=== PATIENT | male | born 1955 | race Caucasian/White ===

== ENCOUNTER 2016-05-20 06:32 | Inpatient (IN) | payer OTHER ==
--- NOTE | 2016-05-20 06:48 | EDPHY ---
H & P Source: EMS Time Seen by Provider: 05/20/16 06:42 HPI/ROS: HPI The patient presents brought in by ambulance after being found down on the bike path in a few inches of snow next to a [place]. It is unclear how long he was down for, however police received a call about an hour prior about someone yelling for help. The patient was noted to be very cold, was nonresponsive. He was given hot packs, had a normal blood glucose, IVs were established, and he was transported to the hospital. On arrival, the patient is not able to give any history due to his mental status. REVIEW OF SYSTEMS Unable to obtain given mental status PMHx: Unable to obtain PHYSICAL General Appearance: Cool to the touch, eyes closed, arouses to painful stimuli Eyes: Pupils are midline, reactive, mild conjunctival injection ENT, Mouth: Mucous membranes moist Respiratory: There are no retractions, lungs are clear to auscultation Cardiovascular: Regular rate and rhythm Gastrointestinal: Abdomen is soft and non-tender, no masses, bowel sounds normal Neurological: A&O, moves all extremities Skin: Warm and dry, no rashes Musculoskeletal: Neck is supple non tender, he is somewhat contracted Extremities: symmetrical, full range of motion (Bianca Birmingham) Constitutional: Initial Vital Signs Temperature (C) 28.1 C L 05/20/16 06:32 Heart Rate 58 L 05/20/16 06:32 Respiratory Rate 20 05/20/16 06:32 Blood Pressure 115/71 05/20/16 06:32 O2 Sat (%) 99 05/20/16 06:32 O2 Delivery Mode Non-Rebreather Mask O2 (L/minute) 10 Allergies/Adverse Reactions: Penicillins Allergy (Verified 05/20/16 09:31) Tetanus Vaccines and Toxoid Allergy (Verified 05/20/16 09:31) Home Medications: Medication Instructions Recorded Unobtainable 05/20/16 Medical Decision Making - Diagnostics EKG Interpretation: EKG: Complete interpretation has been separately recorded in the [facility] archive. Summary impression: Interventricular conduction delay, rate of 657 (Bianca Birmingham) Imaging: Imaging Impressions Chest X-Ray 05/20/16 06:52 Impression: AP recumbent changes. When clinically feasible, PA and lateral upright views in the department are suggested. Head CT 05/20/16 06:52 Impression: 1. Severe atrophy. 2. No hemorrhage 3. Equivocal left midbrain infarction. 4. Suspect dehydration rather than diffuse cerebral venous thrombosis. Results discussed with Dr. Destini Mccoy at 8:09 AM General information for patients regarding this examination can be found at [email or web address]. If you have questions or comments about this report, please contact me at [phone] (hospital) or [phone] (cell). Procedures: CENTRAL LINE WITH US GUIDANCE Procedure: Ultrasound guidance. Using the linear probe covered in a sterile sheath, a short axis of the vein was obtained. The vein was completely compressible and was identified as separate from the adjacent non-compressible arterial structure. Under real- time guidance, the introducer needle was observed up to the vein, and then punctured it. Indication: Severe hypothermia. Risks, benefits, alternatives were not discussed given the patient's altered mental status and emergent condition including but not limited to bleeding, infection, vascular injury, and collapsed lung and consent obtained. A timeout was observed. [Full maximal sterile barrier technique was used including cap, gown, sterile gloves, large sheet, hand washing and chlorhexidine prep]. The area was anesthetized with 1% lidocaine. A social triple lumen catheter was placed in the right femoral vein using standard Seldinger technique. There were no complications. Blood return low pressure, dark blood. Patient tolerated procedure well. The procedure was performed by myself. (Bianca Birmingham) ED Course/Re-evaluation: 745: Care of this patient was transferred to dc by Dr. Birmingham at shift change. The patient's temperature is 28.5C. Given this, he meets requirements for Full Trauma Activation. Trauma surgeon paged. 755: Consultation with Dr. Greenwood, trauma surgeon on-call, who will visit the patient in the ED. 808: Imaging results reported to me by Dr. Hanson, radiologist. 825: Dr. Greenwood at bedside. Will proceed with CT of the c-spine per Dr. Greenwood' s recommendation. CT C-spine negative. Pt's VS remained stable throughout his ED stay. Core temp gradually increased. (Destini Mccoy) Differential Diagnosis: This is an approximately 49-year-old man who is found down next to a [place] on the bike path in a few inches of snow with altered mental status. Presumed to be hypothermic. He is minimally responsive, only to painful stimuli, he is moving all extremities. He does not have any external signs of trauma. He has a heart rate in the 70s with a normal blood pressure. His oxygen saturation is in the high 90s with a non-rebreather mask. Immediately, patient was undressed dried off, placed with the Toñito Hugger. He has 2 IV lines established and he was given warm normal saline. Hauser was placed and bladder temp returned at 27 C. Given this severe hypothermia, decision was made to place central line to administer warm IV fluids with full. I discussed the case with the hospitalist Dr. Monique. We plan to admit the patient to the ICU. CT scan of his head and chest x-ray are currently pending. (Bianca Birmingham) Critical Care Time: CRITICAL CARE Critical care time spent by me, Dr Birmingham, exclusively with this patient was 30 minutes, exclusive of PA time and exclusive of procedures. The organ system at risk was neuro, cardiac and I gave IV fluids, emergently transfer the patient to the ICU to prevent worsening of the patients condition. (Bianca Birmingham) - Data Points Laboratory Results: Laboratory Results 05/20/16 06:30 05/20/16 06:30 05/20/16 05/20/16 05/20/16 06:35 06:30 06:30 WBC 6.45 10^3/uL 10^3/uL (3.80-9.50) RBC 4.61 10^6/uL 10^6/uL (4.40-6.38) Hgb 12.8 g/dL L g/dL (13.7-17.5) POC Hgb 15.0 gm/dL gm/dL (14.5-17.3) Hct 40.7 % % (40.0-51.0) POC Hct 44 % % (42.8-50.6) MCV 88.3 fL fL (81.5-99.8) MCH 27.8 pg L pg (27.9-34.1) MCHC 31.4 g/dL L g/dL (32.4-36.7) RDW 18.9 % H % (11.5-15.2) Plt Count 137 10^3/uL L 10^3/uL (150-400) MPV 10.5 fL fL (8.7-11.7) Neut % (Auto) 23.7 % L % (39.3-74.2) Lymph % (Auto) 68.8 % H % (15.0-45.0) [place] % (Auto) 4.3 % L % (4.5-13.0) Eos % (Auto) 1.7 % % (0.6-7.6) Baso % (Auto) 1.2 % % (0.3-1.7) Nucleat RBC Rel Count 0.0 % % (0.0-0.2) Absolute Neuts (auto) 1.52 10^3/uL L 10^3/uL (1.70-6.50) Absolute Lymphs (auto) 4.44 10^3/uL H 10^3/uL (1.00-3.00) Absolute Monos (auto) 0.28 10^3/uL L 10^3/uL (0.30-0.80) Absolute Eos (auto) 0.11 10^3/uL 10^3/uL (0.03-0.40) Absolute Basos (auto) 0.08 10^3/uL 10^3/uL (0.02-0.10) Absolute Nucleated RBC 0.00 10^3/uL 10^3/uL (0-0.01) Immature Gran % 0.3 % % (0.0-1.1) Immature Gran # 0.02 10^3/uL 10^3/uL (0.00-0.10) POC Sodium 150 mEq/L H mEq/L (134-144) Sodium 153 mEq/L H mEq/L (134-144) POC Potassium 4.0 mEq/L mEq/L (3.3-5.0) Potassium 4.3 mEq/L mEq/L (3.5-5.2) POC Chloride 109 mEq/L H mEq/L (96-108) Chloride 110 mEq/L mEq/L (97-110) Carbon Dioxide 22 mEq/l mEq/l (22-31) Anion Gap 21 mEq/L H mEq/L (8-16) POC BUN 15 mg/dL mg/dL (7-23) BUN 14 mg/dL mg/dL (7-23) Creatinine 1.0 mg/dL mg/dL (0.7-1.3) POC Creatinine 1.2 mg/dL mg/dL (0.8-1.5) Estimated GFR > 60 Glucose 114 mg/dL H mg/dL (70-100) POC Glucose 115 mg/dL H mg/dL (70-100) Calcium 8.7 mg/dL mg/dL (8.5-10.4) Total Bilirubin 1.0 mg/dL mg/dL (0.1-1.4) AST 159 IU/L H IU/L (17-59) ALT 77 IU/L H IU/L (21-72) Alkaline Phosphatase 113 IU/L IU/L (38-126) Total Protein 8.5 g/dL H g/dL (6.3-8.2) Albumin 4.3 g/dL g/dL (3.5-5.0) Ethyl Alcohol 381 mg/dL H mg/dL (0-10) Medications Given: Discontinued Medications Sodium Chloride (Ns) 2,000 mls @ 0 mls/hr IV EDNOW ONE PRN Reason: Wide Open Stop: 05/20/16 07:01 Last Admin: 05/20/16 08:18 Dose: 2,000 mls Thiamine HCl 500 mg/ Sodium (Chloride) 105 mls @ 210 mls/hr IM ONCE ONE Stop: 05/20/16 10:40 Last Admin: 05/20/16 13:39 Dose: Not Given Lorazepam (Ativan Injection) 2 mg IVP ONCE ONE Stop: 05/20/16 10:12 Last Admin: 05/20/16 13:40 Dose: Not Given Lorazepam (Ativan) 2 mg PO ONCE ONE Stop: 05/20/16 10:12 Last Admin: 05/20/16 13:43 Dose: 2 mg Point of Care Test Results: 05/20/16 06:35 POC Sodium 150 H POC Potassium 4.0 POC Chloride 109 H POC BUN 15 POC Creatinine 1.2 POC Glucose 115 H Departure - Departure Disposition: [facility] [place] Inpatient Acute Clinical Impression: Hypothermia Qualifiers: Encounter type: initial encounter Qualified Code(s): T68.XXXA - Hypothermia, initial encounter Altered mental status Qualifiers: Altered mental status type: somnolence Qualified Code(s): R40.0 - Somnolence Condition: Critical
[2016-05-20 06:51] LABS: % IMMATURE GRANULYOCYTES 0.3 % (0.0-1.1); ABSOLUTE IMMATURE GRANULOCYTES 0.02 10^3/uL (0.00-0.10); ADD DIFF? NO; ADD MORPH? NO; ADD SCAN? NO; ATYPICAL LYMPHOCYTE FLAG 0 (0-99); FRAGMENT RBC FLAG 0 (0-99); HEMATOCRIT 40.7 % (40.0-51.0); HEMOGLOBIN 12.8 g/dL (13.7-17.5); LEFT SHIFT FLG 0 (0-99); LIPEMIA HEMOLYSIS FLAG 80 (0-99); MEAN CELL HEMOGLOBIN 27.8 pg (27.9-34.1); MEAN CELL HEMOGLOBIN CONCENTR. 31.4 g/dL (32.4-36.7); MEAN CELL VOLUME 88.3 fL (81.5-99.8); MEAN PLATELET VOLUME 10.5 fL (8.7-11.7); PLATELET CLUMPS FLAG 10 (0-99); PLATELET COUNT 137 10^3/uL (150-400); RED BLOOD CELL COUNT 4.61 10^6/uL (4.40-6.38); RED CELL DISTRIBUTION WIDTH 18.9 % (11.5-15.2)
--- NOTE | 2016-05-20 06:56 | CPEKG ---
Heart Rate: 57 RR Interval: 1053 QRSD Interval: 128 QT Interval: 504 QTC Interval: 491 QRS [place]: 55 T Wave [place]: 79 EKG Severity - ABNORMAL ECG - EKG Impression: SINUS RHYTHM WITH MODERATE BASELINE ARTIFACT EKG Impression: IVCD, CONSIDER ATYPICAL LBBB Electronically Signed By: Nicholas Austin 21-May-2016 11:36:15
[2016-05-20] MEDS ORDERED: NS 2,000 ML IV ONE (07:00)
[2016-05-20 07:05] LABS: ALANINE AMINOTRANSFERASE 77 IU/L (21-72); ALBUMIN 4.3 g/dL (3.5-5.0); ALKALINE PHOSPHATASE 113 IU/L (38-126); ANION GAP 21 mEq/L (8-16); ASPARTATE AMINOTRANSFERASE 159 IU/L (17-59); CALCIUM 8.7 mg/dL (8.5-10.4); CARBON DIOXIDE 22 mEq/l (22-31); CHLORIDE 110 mEq/L (97-110); GLOMERULAR FILTRATION RATE > 60; GLUCOSE 114 mg/dL (70-100); POTASSIUM 4.3 mEq/L (3.5-5.2); SODIUM 153 mEq/L (134-144); TOTAL PROTEIN 8.5 g/dL (6.3-8.2)
[2016-05-20 07:16] LABS: ETHANOL SERUM 381 mg/dL (0-10)
[2016-05-20] MEDS ORDERED: ONDANSETRON DISINTEGRATING 4 MG TAB PO PRN (07:41)
[2016-05-20] MEDS ORDERED: ONDANSETRON 4 MG/2 ML VIAL IVP PRN (07:41)
[2016-05-20] MEDS ORDERED: ACETAMINOPHEN 325 MG TAB PO PRN (07:41)
--- NOTE | 2016-05-20 08:28 | GHP ---
[f rep st] HISTORY AND PHYSICAL DATE OF ADMISSION: 05/20/2016 HISTORY OF PRESENT ILLNESS: The patient is a 61-year-old homeless alcoholic with numerous presentat ions with intoxication and hypothermia who was found hypothermic and unresponsive by, but not in, [facility]. When I speak with the patient, he offers minimal history. He groans when I attempt to look in his eyes with a light. He is covered in sand. He is not able to follow commands and is no t able to answer questions. I spoke with the ER doctor who saw him and she was unable to obtain any meaningful history as well. Notably, he was here about a month ago with a core temperature of 90 d egrees and alcohol intoxication. When he became normothermic and clinically sober, he left the hosp ital. REVIEW OF SYSTEMS: A complete 10-point review of systems was conducted and negative except as noted in the HPI. PAST MEDICAL HISTORY: Alcoholism and homelessness. ALLERGIES: No known drug allergies. MEDICATIONS: None. SOCIAL HISTORY: Homeless. Alcoholic. Unknown tobacco. FAMILY HISTORY: Unobtainable. PHYSICAL EXAMINATION: VITAL SIGNS: Temperature 28.1 degree Celsius and then fell to 27.7, blood pr essure 115/71, pulse 58, breathing 20 times a minute, 99% on 15 L, 100% on 10 L. GENERAL: No acute distress. Minimally responsive. HEENT: Sclerae are anicteric. Pupils are responsive, but sluggi sh. Oropharynx is clear. NECK: Supple without lymphadenopathy or JVD. LUNGS: Clear to auscultat ion anterolaterally. HEART: S1, S2. Bradycardic. ABDOMEN: Soft, nontender, nondistended. LOWER EXTREMITIES: No edema. Calves nontender. SKIN: Without rash. NEUROLOGIC: Notable for an enceph alopathic patient. LABORATORY DATA: White count 6.45, hematocrit 40, platelets 137,000, sodium 153, potassium 4.3, chl oride 110, bicarb 22, BUN 14, creatinine 1.0, glucose 114, AST 159, ALT 77, albumin 4.3. His alcoho l level is 381. IMAGING: EKG, interpreted by me, shows sinus at 67 with normal axis and intervals. There are no ST or T-wave changes. He does not have J waves. I discussed the case with Dr. Bianca Birmingham. Th ere is a noncontrast head CT pending. ASSESSMENT/PLAN: A 61-year-old gentle with hypothermia. 1. Hypothermia. He is remarkably hypothermic, but hemodynamically stable. A heating exchange cath eter has been placed. He is under a Toñito Hugger. I believe we can warm him with these means only a nd does not require warm peritoneal lavage, etc., given his hemodynamic stability. 2. Alcoholism. He certainly is at risk for withdrawal, but at this point in time we will follow. 3. Hypernatremia. Will volume resuscitate with half-normal and follow this. 4. Code status: Full. 5. Prophylaxis. Pharmacologic prophylaxis is indicated. Will start enoxaparin. It may be reasona ble to start tomorrow on the given the coagulopathy associated with hypothermia. 6. Disposition: Inpatient status. /[id number]/MODL
[2016-05-20] MEDS ORDERED: ENOXAPARIN 40 MG/0.4 ML SYR SC SCH (09:00)
[2016-05-20 09:01] LABS: % IMMATURE GRANULYOCYTES 0.4 % (0.0-1.1); ABSOLUTE IMMATURE GRANULOCYTES 0.01 10^3/uL (0.00-0.10); ADD DIFF? NO; ADD MORPH? NO; ADD SCAN? NO; ATYPICAL LYMPHOCYTE FLAG 10 (0-99); FRAGMENT RBC FLAG 0 (0-99); HEMATOCRIT 35.8 % (40.0-51.0); HEMOGLOBIN 11.5 g/dL (13.7-17.5); LEFT SHIFT FLG 10 (0-99); LIPEMIA HEMOLYSIS FLAG 80 (0-99); MEAN CELL HEMOGLOBIN 27.8 pg (27.9-34.1); MEAN CELL HEMOGLOBIN CONCENTR. 32.1 g/dL (32.4-36.7); MEAN CELL VOLUME 86.7 fL (81.5-99.8); MEAN PLATELET VOLUME 10.1 fL (8.7-11.7); PLATELET CLUMPS FLAG 0 (0-99); PLATELET COUNT 97 10^3/uL (150-400); RED BLOOD CELL COUNT 4.13 10^6/uL (4.40-6.38); RED CELL DISTRIBUTION WIDTH 18.5 % (11.5-15.2)
[2016-05-20 09:22] LABS: ALANINE AMINOTRANSFERASE 72 IU/L (21-72); ALBUMIN 3.7 g/dL (3.5-5.0); ALKALINE PHOSPHATASE 93 IU/L (38-126); ANION GAP 17 mEq/L (8-16); ASPARTATE AMINOTRANSFERASE 143 IU/L (17-59); BILIRUBIN,TOTAL 0.9 mg/dL (0.1-1.4); CALCIUM 7.9 mg/dL (8.5-10.4); CARBON DIOXIDE 19 mEq/l (22-31); CHLORIDE 116 mEq/L (97-110); CREATININE 0.8 mg/dL (0.7-1.3); GLOMERULAR FILTRATION RATE > 60; GLUCOSE 98 mg/dL (70-100); POTASSIUM 4.1 mEq/L (3.5-5.2); SODIUM 152 mEq/L (134-144); TOTAL PROTEIN 7.2 g/dL (6.3-8.2)
[2016-05-20] MEDS: 1/2 NS 1,000 ML IV SCH (09:37)
[2016-05-20] MEDS ORDERED: PROTOCOL K PHOSPHATE 1 DOSE IV PRN (10:10)
[2016-05-20] MEDS ORDERED: PROTOCOL MAGNESIUM 1 DOSE IV PRN (10:10)
[2016-05-20] MEDS ORDERED: PROTOCOL CALCIUM 1 DOSE IV PRN (10:10)
[2016-05-20] MEDS ORDERED: PROTOCOL POTASSIUM 1 DOSE MISC PRN (10:10)
[2016-05-20] MEDS ORDERED: LORazepam 1 MG TAB PO ONE (10:11)
[2016-05-20] MEDS ORDERED: LORazepam 2 MG/ML INJ IVP PRN (10:11)
[2016-05-20] MEDS ORDERED: THIAMINE HCL 500 MG in NS 100 ML IM ONE (10:11)
[2016-05-20] MEDS ORDERED: LORazepam 2 MG/ML INJ IVP ONE (10:11)
--- NOTE | 2016-05-20 10:13 | GCON ---
[f rep st] CONSULTATION REASON FOR CONSULTATION: Hypothermia. HISTORY: This patient has been a frequent visitor to the ER this year. He was found in a snow bank this morning. His temperature was 27. I was asked to see him for hypothermic reasons. He previously has been seen by the ER staff. A Thermaguard warming catheter and Toñito Hugger are being used. He has a nasal trumpet in place. His breathing is unrestricted and there is no external bleeding. Reviewing his history, he was found unresponsive and possibly had fallen on February 25 of this year. At that point, his alcohol was 410 and his temperature was 32.8. On March 02, he was found sleeping on the bike path. His blood alcohol was 255 and his temperature was 32.2. On March 09, he was found sleeping in an alley. His blood alcohol was not available from that admission, but his temperature was 32.3. On March 19, he was found in a ditch with a blood alcohol of 291 and a temperature of 30.0. On March 29, he was found sleeping under a bridge. His blood alcohol was 353 and his temperature was 36.4. Today, his blood alcohol level is 381 and his temperature was 27. The ER realized well after his presentation that, because of his hypothermia, he fell under trauma criteria. Although he had previously been seen by the hospitalist service, Dr.Jeff Monique, they had asked me to provide a trauma consultation. He will not move extremities to command. His speech is clearing but garbled. He states that he in [place] or [place]. He does know that the year is 2016. He can relate that he had chest tubes on the right for a collapsed lung at some point in the past (AK47 injury?). He states that he has end-stage cirrhosis. Other history is unobtainable. There is a note that he is a smoker as well. ALLERGIES: By history, he is allergic to penicillin and tetanus. PHYSICAL EXAMINATION: HEENT: His skull is normocephalic and atraumatic. He has anisocoria. His right pupil is 2 mm. Left pupil is 3. He has full upper and lower dentures, but states his dentures come together normally when he bites down. There is no Lee sign or raccoon eyes. Tympanic membranes difficult to examine because of extensive cerumen. A C-collar was not in place when I first saw him ( it was placed ). EXTREMITIES: His upper extremities are normal to range of motion without contusions or wounds. His clavicles are palpably normal. CHEST: Stable to AP and lateral compression. There is a lower right chest irregular scar and above it there is a liner scar consistent with a chest tube insertion site. I dod not see any exit wound scar. HEART: His cardiac exam shows distant regular heart tones. BACK: His back is uninjured and the spine is palpably normal. ABDOMEN: Soft and nontender. He does have an umbilical hernia. Bowel sounds are hypoactive. PELVIS: Stable to AP and lateral compression. RECTAL: Tone is good. There is a warming catheter in his right femoral vein. A hsu is in place. EXTREMITIES: show contusions over the knees. They are nontender to flexion and extension. IMAGING: A followup CT of his neck is negative. The CT of his head shows a question of a lesion or artifact in the omid on the left. It will probably take an MRI to sort that out completely. LABORATORY DATA: A stool guaiac was obtained. Results were pending. As mentioned, his blood alcohol was 381. His sodium is 153. His glucose 114. His AST is 59, his ALT is 77. His hematocrit is 40. PLAN: His temperature has come up from 27, to now up to just slightly shy of 33. He will be transferred to the ICU. The only comment I have to add to his care was suggesting a followup MRI of his brain to make sure that the area in the omid is truly an artifact and not a real finding. Electrolytes will be followed. The warming catheter will be removed when his target temperature is reached. /[id number]/MODL MTDD
[2016-05-20 10:58] LABS: IONIZED CALCIUM 1.08 MMOL/L (1.12-1.30)
[2016-05-20 11:18] LABS: INR 1.39 (0.83-1.16)
[2016-05-20 11:41] LABS: MAGNESIUM 1.8 mg/dL (1.6-2.3)
--- NOTE | 2016-05-20 12:59 | GCON ---
[f rep st] CONSULTATION CRITICAL CARE CONSULTATION DATE OF CONSULTATION: 05/20/2016 REASON FOR ADMISSION: Hypothermia, alcoholism, abnormal mental status. HISTORY: The patient is a 61-year-old homeless gentleman who is a chronic alcoholic. He has been i n the emergency department on a number of occasions recently, having been found outside, intoxicated and asleep, and relatively hypothermic. He was treated in the emergency room on each occasion and released. Blood-alcohol levels were always significantly elevated. He was found in the snow near [facility]. Blood-alcohol level was significantly elevated at 381. He was semiconscious. He was markedly hypothermic with a core temperature of 28 degrees. He was hemodynamically stable. A Ther moguard warming catheter was placed, as was a Toñito Hugger. He has been warmed rapidly per protocols and is currently at 34 degrees, starting to wake up. PAST MEDICAL HISTORY: Remarkable for alcoholism and homelessness. History cannot be obtained from the patient currently. ALLERGIES: No drug allergies are listed. MEDICATIONS: He apparently takes no medications. SOCIAL HISTORY: He states he does smoke some cigarettes. He is homeless. I do not know about previous history, family history, or review of systems as this is all unobtainab le. PHYSICAL EXAMINATION: GENERAL: Reveals a middle-aged gentleman who smells of alcohol. He is somew hat unkept. He is responsive to some questions with short responses, not to others. VITAL SIGNS: Blood pressure is 120/70, heart rate 70, with sinus rhythm on the monitor. He is on a non-rebreathe r mask at 10 L with saturations of 99%. At 10:00, his temperature is over 33 degrees. HEENT: Yamel rkable for mild anisocoria, with right pupil slightly larger than the left. Mucous membranes are dr y. The sclerae are mildly injected. There is no obvious lymphadenopathy or thyromegaly. There is no jugular venous distention. CHEST: Reveals decreased breath sounds and decreased air exchange. He will not take deep breaths for me. Breath sounds are somewhat coarse, without wheezes or rhonchi . HEART: Tones are distant. The rhythm is regular. There is a soft systolic murmur, no gallop. ABDOMEN: Soft. A liver edge is palpable. I do not feel a spleen. There are no masses. A Hauser c atheter is in place with good urine output. EXTREMITIES: Remarkable for some old scars, a few aminah r bruises. There is no evidence of cellulitis. There are no focal areas of infection. There are n o areas of his extremities affected by frostbite or cold-induced injury. Perfusion and pulses are i ntact. NEUROLOGIC: Status is grossly nonfocal. He moves all extremities to stimulation and comman d, answers basic questions appropriately but is currently oriented only to person and hospital. DATABASE: CT scan of the head showed a questionable abnormality related to the left mid brain, poss ibly a previous infarction versus a streak artifact. No mass lesion was seen, and this is unchanged from a CT scan performed in the emergency room from a previous evaluation. Chest x-ray was without infiltrate or atelectasis. There was some peribronchial thickening noted. CT scan of the cervical spine was unremarkable for acute fracture or soft tissue swelling. LABORATORY: White blood cell count is 2400, down from 6400 on admission. Hematocrit is 35.8, plate lets 97,000. INR is 1.39. Sodium 152, potassium 4.1, chloride 116, CO2 19, BUN 14, with a creatini ne of 7. Glucose is 98, ionized calcium low at 1.08, normal phosphorus and magnesium. AST is 143, with an ALT of 72. Stool occult blood was checked and is positive. Tox screen was positive for caro zodiazepines. Blood alcohol was 381. ASSESSMENT: 1. Hypothermia. The patient is significantly hypothermic secondary to cold exposure related to int oxication and passing out outside in the snow. He is being re-warmed actively and is doing well. M ental status is improving. 2. Acute and chronic alcoholism. He is at risk for withdrawal and will need to be placed on the CI WA protocol once re-warmed. 3. Positive occult blood in his stool. Outpatient evaluation will be suggested. 4. 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 An MRI can be obtained. 5. Metabolic: Hypernatremia, hypocalcemia, at risk for hypomagnesemia and hypophosphatemia. He is on replacement protocols. 6. History of tobacco abuse. 7. Homelessness. PLAN AND RECOMMENDATIONS: The patient will be kept in the intensive care unit. Active rewarming wi ll be continued, with a goal of 36 degrees. Laboratory will be followed and electrolytes replaced p er protocol. He will be placed on the CIWA protocol. MRI of the brain can be considered. Cardiac monitoring will be continued, looking for cardiac arrhythmias with rewarming. Once re-warmed, we ca n have discussions with him regarding alcoholism, followup as an outpatient, etc. Further plans and recommendations will be made based on his progress over the next 12-24 hours. /[id number]/MODL
--- NOTE | 2016-05-20 16:08 | HOSPPROG ---
Hospitalist Progress Note Assessment/Plan: Wanted to leave earlier, now wants to stay. He is too weak to ambulate currently. He has had multiple other presentations to the ED where he was found hypothermic , obtunded and intoxicated. Appears comfortable, chest pain is very reproducible on palpation. # hypothermia - rewarmed successfully # acute encephalopathy - resolved # chest pain - d/t trauma, will no w/u further # etOH abuse/withdrawal - no plane to stop drinking, will given etOH and scheduled Librium + CIWA # weakness - PT/OT # homeless # electrolyte abnormalities - replete # dispo - likely dc tomorrow Objective: Vital Signs Temp Pulse Resp BP Pulse Ox 33 C L 74 14 113/58 L 99 05/20/16 09:38 05/20/16 09:38 05/20/16 09:38 05/20/16 09:38 05/20/16 09:38 Laboratory Results 05/20/16 08:53 05/20/16 08:53 05/19/16 05/20/16 05/21/16 05:59 05:59 05:59 Intake Total 2000 Output Total 700 Balance 1300 PT 17.0 SEC (12.0-15.0) H 05/20/16 10:50 INR 1.39 (0.83-1.16) H 05/20/16 10:50 ICD10 Worksheet Patient Problems: Problems Problem Status Onset Hypothermia Acute Altered mental status Acute
[2016-05-20] MEDS ORDERED: BEER 1 EACH EA PO SCH (18:00)
[2016-05-20] MEDS: VODKA 50 ML BOTTLE PO PRN ×2 (21:03→22:11)
[2016-05-20] MEDS: chlordiazePOXIDE 25 MG CAP PO SCH (22:07)
[2016-05-20] MEDS: LORazepam 1 MG TAB PO PRN (22:07)
[2016-05-21 04:51] VITALS: TEMP 98.8
[2016-05-21] MEDS: VODKA 50 ML BOTTLE PO PRN ×2 (05:08→10:54)
[2016-05-21] MEDS: LORazepam 1 MG TAB PO PRN (05:09)
[2016-05-21] MEDS: 1/2 NS 1,000 ML IV SCH (05:34)
[2016-05-21 05:54] LABS: IONIZED CALCIUM 1.05 MMOL/L (1.12-1.30)
[2016-05-21 05:57] LABS: % IMMATURE GRANULYOCYTES 0.2 % (0.0-1.1); ABSOLUTE IMMATURE GRANULOCYTES 0.01 10^3/uL (0.00-0.10); ADD DIFF? NO; ADD MORPH? NO; ADD SCAN? NO; ATYPICAL LYMPHOCYTE FLAG 0 (0-99); FRAGMENT RBC FLAG 0 (0-99); LEFT SHIFT FLG 0 (0-99); LIPEMIA HEMOLYSIS FLAG 80 (0-99); MEAN CELL HEMOGLOBIN 27.6 pg (27.9-34.1); MEAN CELL HEMOGLOBIN CONCENTR. 32.4 g/dL (32.4-36.7); MEAN CELL VOLUME 85.4 fL (81.5-99.8); PLATELET CLUMPS FLAG 0 (0-99); PLATELET COUNT 92 10^3/uL (150-400); RED BLOOD CELL COUNT 3.98 10^6/uL (4.40-6.38); RED CELL DISTRIBUTION WIDTH 18.5 % (11.5-15.2)
[2016-05-21 06:12] LABS: ANION GAP 12 mEq/L (8-16); CALCIUM 8.2 mg/dL (8.5-10.4); CARBON DIOXIDE 21 mEq/l (22-31); CHLORIDE 110 mEq/L (97-110); CREATININE 0.8 mg/dL (0.7-1.3); GLOMERULAR FILTRATION RATE > 60; GLUCOSE 78 mg/dL (70-100); MAGNESIUM 1.4 mg/dL (1.6-2.3); POTASSIUM 3.8 mEq/L (3.5-5.2); SODIUM 143 mEq/L (134-144)
[2016-05-21 07:23] LABS: POTASSIUM 3.9 mEq/L (3.5-5.2)
[2016-05-21] MEDS: chlordiazePOXIDE 25 MG CAP PO SCH (07:58)
[2016-05-21] MEDS ORDERED: CALCIUM GLUCONATE 50 ML IV ONE (08:00)
[2016-05-21] MEDS ORDERED: MAGNESIUM SULF 2 GM/WATER 50 ML IV ONE (08:01)
[2016-05-21 08:21] VITALS: BP 127/72; PULSE 73; RESP 18; O2SAT 80
[2016-05-21] MEDS ORDERED: ONDANSETRON DISINTEGRATING 4 MG TAB PO PRN (10:54)
--- NOTE | 2016-05-21 17:22 | PDDCSUM ---
Discharge Summary Discharge Summary: DISCHARGE SUMMARY FOLLOW-UP ITEMS: Establish primary care DATE OF ADMISSION: 05/20/2016 DATE OF DISCHARGE: 05/21/2016 DISCHARGE DIAGNOSES: 1. Acute hypothermia 2. Acute encephalopathy 3. Acute chest pain 4. Acute alcohol intoxication 5. Acute alcohol withdrawal 6. Acute hypocalcemia 7. Acute hypoxic respiratory failure CONSULTATIONS: Pulmonary Critical Care PROCEDURES / IMAGING: Head CT demonstrating no intracranial hemorrhage CHIEF COMPLAINT: Found down SUBJECTIVE: Patient would like to be discharged, he would like to be called "Gator" PHYSICAL EXAM ON DISCHARGE: Systolic blood pressure is 110, heart rate 70, afebrile overnight, alert awake oriented x3, mildly tremulous, no longer encephalopathic, breath sounds are clear to auscultation bilaterally LABS ON DISCHARGE: White blood cell count 5100, hemoglobin 11, creatinine 0.8, presenting alcohol level 380, tox screen positive for benzos, platelets [id number] HOSPITAL COURSE BY PROBLEM: 1. Acute hypothermia. Evidenced by presenting temperature of 27.7 degrees C in the setting of elemental exposure in the setting of alcohol intoxication. Patient was rewarmed by protocol, was a normal temperature at time of discharge. He required ICU level care for this. 2. Acute encephalopathy. Evidenced by global brain dysfunction characterized as complete unresponsiveness, confusion, acute change from his baseline, most likely secondary to the metabolic effects of hypothermia as well as the toxic effects of alcohol intoxication. His mental status improved and he was mentating at his baseline at time of discharge. 3. Acute chest pain. Most likely secondary to trauma, no further workup indicated. 4. Acute alcohol intoxication. Blood alcohol level 380 on presentation, the patient is a self admitted alcoholic, he does not want any assistance detoxing from alcohol at this time. He is looking forward to drinking vodka this morning. 5. Acute alcohol withdrawal. Evidence by tachycardia and tremulousness, get provided alcohol as well as scheduled Librium to prevent acute worsening. Since the patient has no intention to stop drinking and he simply wants appointment the direction of [facility] so he continued drinking, we will abide by this request. He currently has the capacity to make this decision. We will not provide him with any medications for this moving forward. 6. Acute hypocalcemia. Patient was repleted with IV calcium as well as other IV electrolyte replacement. 7. Acute hypoxic respiratory failure. Evidenced by SpO2 of 77% on room air requiring non-rebreather mask, most likely secondary to hypothermia and acute alcohol intoxication which was so dense as to make him minimally responsive and reduced his respiratory drive. He was admitted to the intensive care unit, monitored on pulse oximeter, received non-rebreather, supplemental oxygen weaned , and he was saturate 94% on room air at time of discharge after his mental status stabilized. DISCHARGE MEDICATIONS: Please see official discharge medication reconciliation sheet in chart , no medications. DISCHARGE INSTRUCTIONS: Schedule him with follow-up appointment at the [facility] prior to discharge. TIME SPENT: Greater than 30 minutes were spent on direct patient care, as well as discharge planning and preparation. Although is not advisable, the patient is requesting discharge at this time and he currently has the cognitive capacity to do so. We would have otherwise continued his hospitalization for inpatient alcohol withdrawal protocol but the patient would like to drink alcohol and he is discharging himself to the streets in order to do so. We will comply with his request to facilitate a safe and amicable discharge.
[2016-05-21] MEDS ORDERED: THIAMINE HCL 500 MG in NS 100 ML IV SCH (19:11)
== END 2016-05-21 14:33 | disposition home or self-care (01) | DRG 922 ==
LOC: EDBD 06:32 → F2N 09:50 → F1N 21:59
PROVIDERS: ADMIT Internal Medicine; ATTEND Internal Medicine
DX: T68.XXXA Hypothermia, initial encounter (principal); G92 Toxic encephalopathy; J96.01 Acute respiratory failure with hypoxia; F10.239 Alcohol dependence with withdrawal, unspecified; E87.0 Hyperosmolality and hypernatremia; F10.229 Alcohol dependence with intoxication, unspecified; R07.89 Other chest pain; E83.52 Hypercalcemia; E83.51 Hypocalcemia; Y90.8 Blood alcohol level of 240 mg/100 ml or more; Z88.0 Allergy status to penicillin; Z59.0 Homelessness; Z72.0 Tobacco use
CPT/HCPCS: 80305; 82947-QW; 97166-GO; G0480; J0610; J2060; J3411